=== PATIENT | female | born 1960 | race Caucasian/White ===

== ENCOUNTER → 2016-11-29 | Outpatient (CLI) | payer MEDICAID ==
--- NOTE | 2016-12-03 11:38 | RADIOLOGY REPORT PS360 ---
DIG MAMM-SCREEN IGOR W/CAD CAD Screening COMPARISON: Digital mammograms 05/07/2015 and analog mammograms 10/25/2005 INDICATION: There is no personal or family history of breast cancer TECHNIQUE: Standard CC and MLO images were obtained. R2 CAD reviewed. FINDINGS: Scattered fiber glandular densities are seen in the central portions of both breasts. The findings are bilateral and symmetrical. There is no suspicious lesion and no suspicious microcalcifications. IMPRESSION: Fibrofatty parenchyma with no suspicious lesion seen recommend yearly follow-up BI-RADS CATEGORY: 1_Negative RECOMMENDED FOLLOWUP: 12M 12 MONTH FOLLOW-UP (A letter has been sent to the patient regarding results of the study.)
== END ==
LOC: RAD 08:41
DX: Z12.31 Encounter for screening mammogram for malignant neoplasm of breast (principal)
CPT/HCPCS: G0202